=== PATIENT | female | born 1945 | race Caucasian/White ===

== ENCOUNTER 2017-12-26 17:14 | Emergency (ER) | payer MEDICARE ==
--- NOTE | 2017-12-26 17:49 | ED.PDOC ---
History of Present Illness - General Chief Complaint: Headache Time Seen by Provider: 12/26/17 17:35 Source: patient Exam Limitations: no limitations - History of Present Illness Initial Comments: Patient presents with a headache for one week. She says that she has never had one this bad before. It is frontal and occipital. Intermittent. Associated with N/V. Aching in nature. Denies previous episodes. She says she has never had a CVA or AMI. She has Factor V Leiden deficiency and has a history of DVTs. No vision changes. Denies numbness, tingling, or weakness in the extremities. No other complaints. Timing/Duration: 1 week Severity: moderate Improving Factors: nothing Worsening Factors: nothing Associated Symptoms: other - nausea Allergies/Adverse Reactions: Allergies Metronidazole [From Flagyl] Allergy (Verified 12/26/17 17:21) Sulfa Antibiotics Allergy (Verified 12/26/17 17:21) Home Medications: Ambulatory Orders Cefdinir [Omnicef] 300 mg PO BID #4 cap 12/26/17 Promethazine Tab [Phenergan Tablet] 25 mg PO Q6HRS PRN #5 tab 12/26/17 Sumatriptan Succinate [Imitrex] 25 mg PO ONCE PRN #3 tab 12/26/17 Review of Systems - Review of Systems Constitutional: States: no symptoms reported EENTM: States: no symptoms reported Respiratory: States: no symptoms reported Cardiology: States: no symptoms reported Gastrointestinal/Abdominal: States: see HPI Genitourinary: States: no symptoms reported Musculoskeletal: States: no symptoms reported Skin: States: no symptoms reported Neurological: States: see HPI Endocrine: States: no symptoms reported Hematologic/Lymphatic: States: no symptoms reported Past Medical History (General) - Patient Medical History Hx Seizures: No Hx Stroke: No Hx Dementia: No Hx Asthma: No Hx of COPD: No Hx Cardiac Disorders: No Hx Congestive Heart Failure: No Hx Pacemaker: No Hx Hypertension: Yes Hx Thyroid Disease: No Hx Diabetes: Yes Hx Gastroesophageal Reflux: Yes Hx Renal Disease: No Hx Cancer: Yes - colon Hx of HIV: No Hx Hepatitis C: No Hx MRSA: No - Vaccination History Hx Influenza Vaccination: Yes - 2018 Hx Pneumococcal Vaccination: Yes Immunizations Up to Date: Yes - Social History Hx Tobacco Use: No Hx Chewing Tobacco Use: No Hx Alcohol Use: No Hx Substance Use: No Hx Substance Use Treatment: No Hx Depression: No Feels Threatened In Home Enviroment: No Feels Threatened In a Relationship: No Hx Physical Abuse: No Hx Emotional Abuse: No Hx Suspected Abuse: No - Female History Patient is a Female of Child Bearing Age (10 -59 yrs old): No Patient : No Family Medical History - Family History Mother Family History: Unknown Physical Exam - Physical Exam General Appearance: Obvious distress - moderate Eye Exam: bilateral normal Ears, Nose, Throat: hearing grossly normal, normal ENT inspection, normal pharynx Neck: non-tender, full range of motion, supple Respiratory: chest non-tender, lungs clear, normal breath sounds Cardiovascular/Chest: normal peripheral pulses, regular rate, rhythm, no edema Gastrointestinal/Abdominal: normal bowel sounds, non tender, soft Back Exam: normal inspection, no CVA tenderness, no vertebral tenderness Extremity: normal range of motion, non-tender, normal inspection 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 She isn't sure exactly what the disorder is. Therefore, morphine 4 mg IV x one and phenergan 25 mg IV x one was chosen to break this painful headache. 12/26/17 19:42 CT head negative before treatment started. Laboratory Tests 12/26/17 12/26/17 12/26/17 17:44 17:50 17:50 WBC 7.1 RBC 3.71 L Hgb 11.6 L Hct 35.5 L MCV 95.7 MCH 31.2 H MCHC 32.8 L RDW 13.6 Plt Count 249 MPV 8.6 Absolute Neuts (auto) 5.40 Absolute Lymphs (auto) 1.10 Absolute Monos (auto) 0.50 Absolute Eos (auto) 0.00 Absolute Basos (auto) 0.10 Neutrophils % 76.4 Lymphocytes % 15.9 L Monocytes % 6.4 Eosinophils % 0.5 L Basophils % 0.8 PT INR PTT (SP) Sodium 142 Potassium 3.7 Chloride 108 Carbon Dioxide 26 Anion Gap 11.7 L BUN 15 Creatinine 0.94 BUN/Creatinine Ratio 16.0 Random Glucose 165 H Serum Osmolality 287.6 Calcium 8.5 Total Bilirubin 0.7 AST 22 ALT 20 Alkaline Phosphatase 75 Serum Total Protein 6.3 L Albumin 3.6 Globulin 2.7 Albumin/Globulin Ratio 1.3 TSH Thyroxine (T4) Urine Color Urine Appearance Urine pH Ur Specific [place] Urine Protein Urine Glucose (UA) Urine Ketones Urine Blood Urine Nitrite Urine Bilirubin Urine Urobilinogen Ur Leukocyte Esterase Urine RBC Urine WBC Ur Epithelial Cells Urine Bacteria Urine Opiates Screen Negative Urine Barbiturates Negative Ur Phencyclidine Scrn Negative U Amphetamin/Meth Scrn Negative U Benzodiazepines Scrn Negative U Cocaine Metab Screen Negative U Cannabinoids Screen Negative 12/26/17 12/26/17 12/26/17 17:50 17:50 18:40 WBC RBC Hgb Hct MCV MCH MCHC RDW Plt Count MPV Absolute Neuts (auto) Absolute Lymphs (auto) Absolute Monos (auto) Absolute Eos (auto) Absolute Basos (auto) Neutrophils % Lymphocytes % Monocytes % Eosinophils % Basophils % PT 11.0 H INR 1.10 PTT (SP) 24.6 Sodium Potassium Chloride Carbon Dioxide Anion Gap BUN Creatinine BUN/Creatinine Ratio Random Glucose Serum Osmolality Calcium Total Bilirubin AST ALT Alkaline Phosphatase Serum Total Protein Albumin Globulin Albumin/Globulin Ratio TSH 1.90 Thyroxine (T4) 8.07 Urine Color Yellow Urine Appearance Sl cloudy Urine pH 6.0 Ur Specific [place] 1.025 Urine Protein 30 Urine Glucose (UA) Negative Urine Ketones 15 H Urine Blood Trace-lysed H Urine Nitrite Negative Urine Bilirubin Negative Urine Urobilinogen 0.2 Ur Leukocyte Esterase Moderate H Urine RBC 1-3 Urine WBC 5-10 H Ur Epithelial Cells 5-10 Urine Bacteria 2+ H Urine Opiates Screen Urine Barbiturates Ur Phencyclidine Scrn U Amphetamin/Meth Scrn U Benzodiazepines Scrn U Cocaine Metab Screen U Cannabinoids Screen No laboratory explanation for the patient's symptoms. The headache resolved with the morphine and phenergan. Patient had a mild UTI which she is prone to. She was given Rocephin 1 gram IV in the E.D. and an rx for two days of Omnicef. She was also given RX for Phenergan and Imitrex. Care instructions given. E.R. warnings given. Questions were elicited and answered. Patient voiced understanding and agreement with the plan. - EKG/XRAY/CT CT Ordered: No CT Interpretation Call Back: No Departure - Departure Clinical Impression: Headache, UTI (urinary tract infection) Disposition: Discharge to Home or Self Care Condition: Good Departure Forms: ED Discharge - Pt. Copy, Patient Portal Self Enrollment Instructions: DI for Headache Diet: other - as per your primary care doctor Activity: increase activity as tolerated Prescriptions: Promethazine Tab [Phenergan Tablet] 25 mg PO Q6HRS PRN #5 tab PRN Reason: Nausea/Vomiting Cefdinir [Omnicef] 300 mg PO BID #4 cap Sumatriptan Succinate [Imitrex] 25 mg PO ONCE PRN #3 tab PRN Reason: Headache/Migraine Pain Home Medications: Ambulatory Orders Cefdinir [Omnicef] 300 mg PO BID #4 cap 12/26/17 Promethazine Tab [Phenergan Tablet] 25 mg PO Q6HRS PRN #5 tab 12/26/17 Sumatriptan Succinate [Imitrex] 25 mg PO ONCE PRN #3 tab 12/26/17 Additional Instructions: Take medications as prescribed. If headache returns and the medications do not work, return to the E.R. Return to the E.R. for worsening or new symptoms. Return for numbness or weakness in the extremities. See your regular doctor this week for possible future prophylactic treatment.
--- NOTE | 2017-12-26 18:21 | CT ---
EXAM: Head CLINICAL INDICATION: 72-year-old female with worst headache of life with nausea and vomiting. COMPARISON: None. TECHNIQUE: CT brain without contrast. This exam was performed according to our departmental dose optimization program which includes use of automated exposure control, adjustment of the mA and/or kV according to patient size and/or use of iterative reconstruction technique. FINDINGS: The ventricles, sulci, and cisterns are within normal limits. The mercado-white matter differentiation is preserved. There is no mass effect, midline shift, intra- or extra-axial fluid collection/acute hemorrhage. The osseous structures are unremarkable. The paranasal sinuses and mastoid air cells are clear. IMPRESSION: No acute intracranial abnormalities. Electronically signed by: Andreia Keith MD 12/26/2017 6:19 PM CDT
[2017-12-26] MEDS ORDERED: PROMETHAZINE HCL INJ 25 MG in SODIUM CHLORIDE 0.9% 50ML 50 ML IVPB ONE (18:28)
[2017-12-26] MEDS ORDERED: KETOROLAC TROMETHAMINE INJ 30 MG/ML VIAL IV ONE (18:28)
[2017-12-26] MEDS ORDERED: MORPHINE SULFATE INJ 10 MG/ML VIAL IV ONE (18:38)
[2017-12-26] MEDS ORDERED: PROMETHAZINE HCL INJ 25 MG/ML VIAL ONE (18:41)
[2017-12-26] MEDS ORDERED: SODIUM CHLORIDE 0.9% 50ML 50 ML ONE (18:41)
[2017-12-26] MEDS ORDERED: cefTRIAXone SODIUM 1 GM in SODIUM CHL 0.9% 50ML MIN-BAG+ 50 ML IVPB ONE (19:14)
[2017-12-26] MEDS ORDERED: cefTRIAXone SODIUM 1 GM VIAL ONE (19:22)
[2017-12-26] MEDS ORDERED: SODIUM CHL 0.9% 50ML MIN-BAG+ 50 ML IVPB ONE (19:22)
[2017-12-26 20:04] VITALS: BP 182/83
[2017-12-26 20:13] VITALS: TEMP 98.4; O2SAT 97
== END 2017-12-26 20:17 | disposition home or self-care (01) ==
LOC: ER 17:14
DX: R51 Headache (principal); N39.0 Urinary tract infection, site not specified; I10 Essential (primary) hypertension; E11.9 Type 2 diabetes mellitus without complications; K21.9 Gastro-esophageal reflux disease without esophagitis; Z85.038 Personal history of other malignant neoplasm of large intestine; Z79.899 Other long term (current) drug therapy; Z88.2 Allergy status to sulfonamides; Z88.8 Allergy status to other drugs, medicaments and biological substances

== ENCOUNTER 2018-03-12 13:12 | Emergency (ER) | payer MEDICARE ==
--- NOTE | 2018-03-12 13:55 | ED.PDOC ---
History of Present Illness - General Chief Complaint: Abdominal Pain Stated Complaint: Abdominal discomfort Time Seen by Provider: 03/12/18 13:51 Source: patient Exam Limitations: no limitations - History of Present Illness Initial Comments: Kyung Dunbar 72 y/o female from [place] came to ER with lower abdominal discomfort yesterday followed by gross hematuria then subsided but this am had another episode of bloody urine decided to come to ER.Denies fever ,N/V/D,good bm.Stated takes Xarelto for the las years for DVT.Recently hospitalized for spinal meningitis in [place], [place].3 months ago Timing/Duration: yesterday Quality: moderate Onset Location: suprapubic Radiation: none Activites at Onset: none Prior abdominal problems: none Sexual intercourse history: not active Improving Factors: nothing Worsening Factors: nothing Associated Symptoms: other - see hpi Allergies/Adverse Reactions: Allergies Metronidazole [From Flagyl] Allergy (Verified 03/12/18 13:32) Rash Sulfa Antibiotics Allergy (Verified 03/12/18 13:32) Rash Home Medications: Ambulatory Orders Acetamin W/Cod #3 Tab [Tylenol w/CODEINE #3] 1 ea PO Q4HR PRN #20 tab 03/12/18 Clonidine HCl 0.2 mg PO BID 03/12/18 Gerd Medication 1 each PO DAILY 03/12/18 Rivaroxaban [Xarelto] 20 mg PO DAILY 03/12/18 Review of Systems - Review of Systems Gastrointestinal/Abdominal: States: see HPI Genitourinary: States: see HPI, hematuria All other Systems: Reviewed and Negative, No Change from Baseline Past Medical History (General) - Patient Medical History Hx Seizures: No Hx Stroke: No Hx Dementia: No Hx Asthma: No Hx of COPD: No Hx Cardiac Disorders: No Hx Congestive Heart Failure: No Hx Pacemaker: No Hx Hypertension: Yes Hx Thyroid Disease: No - Goiter Hx Diabetes: Yes Hx Gastroesophageal Reflux: Yes Hx Renal Disease: No 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 Hx of HIV: No Hx Hepatitis C: No Hx MRSA: No Surgical History: colectomy, other - hysterectomy - Vaccination History Hx Influenza Vaccination: Yes - 2018 Hx Pneumococcal Vaccination: Yes - Social History Hx Tobacco Use: No Hx Chewing Tobacco Use: No Hx Alcohol Use: No Hx Substance Use: No Hx Substance Use Treatment: No Hx Depression: No Hx Physical Abuse: No Hx Emotional Abuse: No Hx Suspected Abuse: No - Activities of Daily Living Patient Lives Alone: No Grooming Ability: Independent Eating (Feeding) Ability: Independent Toileting Ability: Independent - Female History Patient : No Family Medical History - Family History Mother Family History: Unknown Living Status: Still Living Hx Family Hypertension: Yes Hx Family;Other: ALS-dad Physical Exam - Physical Exam General Appearance: Alert, Comfortable, No apparent distress Eyes, Ears, Nose, Throat Exam: normal ENT inspection Neck: non-tender, full range of motion, supple Cardiovascular/Respiratory: regular rate, rhythm, normal peripheral pulses, normal breath sounds, no respiratory distress Gastrointestinal/Abdominal: normal bowel sounds, non tender, soft Back Exam: no CVA tenderness, no vertebral tenderness Extremity: no pedal edema, no calf tenderness Neurologic: alert, oriented x 3 Skin Exam: normal color, warm/dry Progress - Progress Progress: 03/12/18 16:13 Vital Signs - 8 hr 03/12/18 03/12/18 03/12/18 13:21 14:20 15:21 Temperature 99.8 F H 99.3 F 97.2 F L Pulse Rate [ 71 69 63 Left Radial] Respiratory 20 20 16 Rate Blood Pressure 178/85 161/98 171/78 [Left Arm] O2 Sat by Pulse 99 98 97 Oximetry - Results/Orders Results/Orders: Laboratory Results - last 24 hr 03/12/18 03/12/18 03/12/18 14:13 14:13 14:13 WBC 7.8 RBC 3.87 L Hgb 12.4 Hct 37.3 MCV 96.4 MCH 32.0 H MCHC 33.2 RDW 15.0 H Plt Count 178 MPV 8.7 Absolute Neuts (auto) 6.10 Absolute Lymphs (auto) 1.10 Absolute Monos (auto) 0.50 Absolute Eos (auto) 0.00 Absolute Basos (auto) 0.00 Neutrophils % 78.1 H Lymphocytes % 13.9 L Monocytes % 6.8 Eosinophils % 0.6 L Basophils % 0.6 PT 13.5 H INR 1.35 H PTT (SP) 23.7 Sodium 141 Potassium 4.0 Chloride 110 Carbon Dioxide 25 Anion Gap 10.0 L BUN 25 H Creatinine 1.10 BUN/Creatinine Ratio 22.7 H Random Glucose 180 H Serum Osmolality 290.2 Calcium 9.2 Urine Color Urine Appearance Urine pH Ur Specific [place] Urine Protein Urine Glucose (UA) Urine Ketones Urine Blood Urine Nitrite Urine Bilirubin Urine Urobilinogen Ur Leukocyte Esterase Urine RBC Urine WBC Ur Epithelial Cells Urine Bacteria 03/12/18 14:39 WBC RBC Hgb Hct MCV MCH MCHC RDW Plt Count MPV Absolute Neuts (auto) Absolute Lymphs (auto) Absolute Monos (auto) Absolute Eos (auto) Absolute Basos (auto) Neutrophils % Lymphocytes % Monocytes % Eosinophils % Basophils % PT INR PTT (SP) Sodium Potassium Chloride Carbon Dioxide Anion Gap BUN Creatinine BUN/Creatinine Ratio Random Glucose Serum Osmolality Calcium Urine Color Red H Urine Appearance Cloudy Urine pH 5.5 Ur Specific [place] >= 1.030 Urine Protein >=300 H Urine Glucose (UA) Negative Urine Ketones Negative Urine Blood Large H Urine Nitrite Negative Urine Bilirubin Small H Urine Urobilinogen 0.2 Ur Leukocyte Esterase Negative Urine RBC Tntc H Urine WBC 3-5 H Ur Epithelial Cells 3-5 Urine Bacteria 4+ H Departure - Departure Clinical Impression: Gross hematuria, Ureteral calculus, right Time of Disposition: 16:15 Disposition: Discharge to Home or Self Care Condition: Fair Departure Forms: ED Discharge - Pt. Copy, Patient Portal Self Enrollment Instructions: Kidney Stones in Adults, Kidney Stones (DC) Prescriptions: Acetamin W/Cod #3 Tab [Tylenol w/CODEINE #3] 1 ea PO Q4HR PRN #20 tab PRN Reason: Pain Home Medications: Ambulatory Orders Acetamin W/Cod #3 Tab [Tylenol w/CODEINE #3] 1 ea PO Q4HR PRN #20 tab 03/12/18 Clonidine HCl 0.2 mg PO BID 03/12/18 Gerd Medication 1 each PO DAILY 03/12/18 Rivaroxaban [Xarelto] 20 mg PO DAILY 03/12/18 Additional Instructions: Increase oral fluid in take;continue with all home medications;Return to ER as needed
--- NOTE | 2018-03-12 16:06 | CT ---
PROCEDURE: Abdoment/Pelvis w/o Contrast HISTORY: gross hematuria Indication: Same as above Comparison: None Technique: CT of the abdomen and pelvis was done without intravenous contrast. Images were obtained from the lung base to the level of the pubic symphysis in axial plane, followed by orthogonal sagittal and coronal reconstruction. Oral contrast was not given for the study. This exam was performed according to our departmental dose-optimization program, which includes automated exposure control, adjustment of the mA and/or KV according to the patient's size and/or use of iterative reconstruction technique. FINDINGS: Images through the lung bases do not show any focal infiltrates or pleural effusions. There is presence of a small hiatal hernia The liver, gallbladder, pancreas, spleen and the bilateral adrenal glands appear unremarkable, given the limitation of lack of intravenous contrast. There is presence of a small fat-containing anterior midline ventral hernia defect in the supraumbilical region and a second periumbilical ventral hernia defect containing intraperitoneal fat and nonobstructed loop of small bowel There is right-sided hydroureteronephrosis to the level of the 8 mm calculus seen in the proximal right ureter at the ureteropelvic junction. There is presence of a a few punctate nonobstructive calculi in the lower pole of the right kidney. There is no left-sided hydroureteronephrosis or nephrolithiasis The urinary bladder is unremarkable, without any evidence of wall thickening, calculi or filling defects. The remainder of the small bowel appears unremarkable, without any evidence of small bowel obstruction or bowel wall thickening. There is suggestion of partial colectomy. There is prior surgery in the region of the sigmoid colon with ileocolonic anastomosis seen at this level There is no pathological lymphadenopathy in the retroperitoneum or in the pelvic region. There is no evidence of free fluid or free air in the abdomen or the pelvic region. There is no clinically significant abdominal aortic aneurysm.and a second periumbilical ventral hernia defect containing intraperitoneal fat and nonobstructed loop of small bowel The visualized lumbar spine shows degenerative change at L5/S1 level. The paravertebral soft tissues are unremarkable. The remainder of the pelvic structures are unremarkable. IMPRESSION: There is right-sided hydroureteronephrosis to the level of the 8 mm calculus seen in the proximal right ureter at the ureteropelvic junction. There is presence of a a few punctate nonobstructive calculi in the lower pole of the right kidney. There is presence of a small fat-containing anterior midline ventral hernia defect in the supraumbilical region and a second periumbilical ventral hernia defect containing intraperitoneal fat and nonobstructed loop of small bowel Electronically signed by: Jarad Otero MD 03/12/2018 4:04 PM [employer] Workstation: [id number]
[2018-03-12 16:26] VITALS: BP 159/73; TEMP 97; O2SAT 96
== END 2018-03-12 16:25 | disposition home or self-care (01) ==
LOC: ER 13:12
DX: N13.2 Hydronephrosis with renal and ureteral calculous obstruction (principal); R31.0 Gross hematuria; I10 Essential (primary) hypertension; E11.9 Type 2 diabetes mellitus without complications; K21.9 Gastro-esophageal reflux disease without esophagitis; Z85.038 Personal history of other malignant neoplasm of large intestine; Z88.8 Allergy status to other drugs, medicaments and biological substances; Z88.2 Allergy status to sulfonamides

== ENCOUNTER 2018-03-13 15:46 | Emergency (ER) | payer MEDICARE ==
[2018-03-13] MEDS ORDERED: MORPHINE SULFATE INJ 10 MG/ML VIAL IV ONE (16:17)
[2018-03-13] MEDS ORDERED: ONDANSETRON INJ 4 MG/2 ML VIAL IV ONE (16:18)
--- NOTE | 2018-03-13 16:29 | ED.PDOC ---
History of Present Illness - General Chief Complaint: Problem Stated Complaint: right flank pain Time Seen by Provider: 03/13/18 16:04 - History of Present Illness Initial Comments: THIS PATIENT WAS SEEN YESTERDAY WITH RIGHT SIDED FLANK PAIN. SHE HAS AN 8 MM STONE ON THE RIGHT PROXIMAL URETER. SHE RATES THE PAIN AT 8/10. SHE WAS GIVEN TYLENO 3 AND IS NOT TOUCHING THE PAIN . Timing/Duration: other - TWO DAYS Worsening Factors: nothing Associated Symptoms: nausea/vomiting Allergies/Adverse Reactions: Allergies Metronidazole [From Flagyl] Allergy (Verified 03/12/18 13:32) Rash Sulfa Antibiotics Allergy (Verified 03/12/18 13:32) Rash Home Medications: Ambulatory Orders Acetamin W/Cod #3 Tab [Tylenol w/CODEINE #3] 1 ea PO Q4HR PRN #20 tab 03/12/18 Clonidine HCl 0.2 mg PO BID 03/12/18 Rivaroxaban [Xarelto] 20 mg PO DAILY 03/12/18 DULoxetine HCL [Cymbalta] 60 mg PO DAILY 03/13/18 Ketorolac Tromethamine 10 mg PO Q8HRS #15 tab 03/13/18 Nitrofurantoin Monohydrate Mac [Macrobid] 100 mg PO BID #20 capsule 03/13/18 Tramadol HCl 50 mg PO Q6HRS #20 tab 03/13/18 Review of Systems - Review of Systems Constitutional: States: malaise EENTM: States: no symptoms reported Respiratory: States: no symptoms reported Cardiology: States: no symptoms reported Gastrointestinal/Abdominal: States: abdominal pain, nausea, vomiting Genitourinary: States: hematuria, other - RIGHT FLANK PAIN Musculoskeletal: States: no symptoms reported Skin: States: no symptoms reported Neurological: States: no symptoms reported Endocrine: States: no symptoms reported Past Medical History (General) - Patient Medical History Hx Seizures: No Hx Stroke: No Hx Dementia: No Hx Asthma: No Hx of COPD: No Hx Cardiac Disorders: No Hx Congestive Heart Failure: No Hx Pacemaker: No Hx Hypertension: Yes Hx Thyroid Disease: No - Goiter Hx Diabetes: Yes Hx Gastroesophageal Reflux: Yes Hx Renal Disease: No 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 Hx of HIV: No Hx Hepatitis C: No Hx MRSA: No - Vaccination History Hx Influenza Vaccination: Yes - 2018 Hx Pneumococcal Vaccination: Yes - Social History Hx Tobacco Use: No Hx Chewing Tobacco Use: No Hx Alcohol Use: No Hx Substance Use: No Hx Substance Use Treatment: No Hx Depression: No Hx Physical Abuse: No Hx Emotional Abuse: No Hx Suspected Abuse: No - Female History Patient : No Family Medical History - Family History Mother Family History: Unknown Living Status: Still Living Hx Family Hypertension: Yes Hx Family;Other: ALS-dad Physical Exam - Physical Exam General Appearance: Alert, Ill Appearing, Well Developed, Well Groomed, Well Hydrated, Well Nourished Eye Exam: bilateral normal Ears, Nose, Throat: hearing grossly normal Respiratory: chest non-tender, lungs clear, normal breath sounds Cardiovascular/Chest: normal peripheral pulses, regular rate, rhythm, no edema, no gallop, no JVD, no murmur Peripheral Pulses: radial,right: 2+, radial,left: 2+ Gastrointestinal/Abdominal: normal bowel sounds, soft, no organomegaly, no pulsatile mass, abnormal bowel sounds Neurologic: no motor/sensory deficits, alert, normal mood/affect Progress - Progress Progress: 03/13/18 18:11 URINE IS + NITRATE WILL TREAT. OF NOW THERE IS NO PAIN. SHE WOULD LIKE OUTPATIENT TREATMENT AND A REFERRAL TO [facility]. 03/13/18 18:15 - Results/Orders Results/Orders: 03/13/18 16:43 URINE CULTURE W/COLONY COUNT Stat Laboratory Results - last 24 hr 03/13/18 03/13/18 16:39 16:43 WBC 10.4 RBC 4.27 Hgb 13.6 Hct 41.0 MCV 96.2 MCH 31.8 H MCHC 33.0 RDW 14.9 H Plt Count 182 MPV 8.8 Absolute Neuts (auto) 8.40 H Absolute Lymphs (auto) 1.00 Absolute Monos (auto) 0.80 Absolute Eos (auto) 0.00 Absolute Basos (auto) 0.10 Neutrophils % 81.4 H Lymphocytes % 9.4 L Monocytes % 7.7 Eosinophils % 0.4 L Basophils % 1.1 Urine Color Yellow Urine Appearance Cloudy Urine pH 5.5 Ur Specific [place] 1.020 Urine Protein Negative Urine Glucose (UA) Negative Urine Ketones Negative Urine Blood Trace-lysed H Urine Nitrite Positive H Urine Bilirubin Negative Urine Urobilinogen 0.2 Ur Leukocyte Esterase Negative Urine RBC 0-1 Urine WBC 1-3 Ur Epithelial Cells 5-10 Urine Bacteria 3+ H Departure - Departure Clinical Impression: Ureterolithiasis Time of Disposition: 18:16 Disposition: Discharge to Home or Self Care Condition: Good Departure Forms: ED Discharge - Pt. Copy, Patient Portal Self Enrollment Instructions: DI for Kidney Stones, DI for Kidney Infection Diet: resume usual diet Activity: increase activity as tolerated Prescriptions: Tramadol HCl 50 mg PO Q6HRS #20 tab Ketorolac Tromethamine 10 mg PO Q8HRS #15 tab Nitrofurantoin Monohydrate Mac [Macrobid] 100 mg PO BID #20 capsule Home Medications: Ambulatory Orders Acetamin W/Cod #3 Tab [Tylenol w/CODEINE #3] 1 ea PO Q4HR PRN #20 tab 03/12/18 Clonidine HCl 0.2 mg PO BID 03/12/18 Rivaroxaban [Xarelto] 20 mg PO DAILY 03/12/18 DULoxetine HCL [Cymbalta] 60 mg PO DAILY 03/13/18 Ketorolac Tromethamine 10 mg PO Q8HRS #15 tab 03/13/18 Nitrofurantoin Monohydrate Mac [Macrobid] 100 mg PO BID #20 capsule 03/13/18 Tramadol HCl 50 mg PO Q6HRS #20 tab 03/13/18
[2018-03-13 17:14] VITALS: O2SAT 95
[2018-03-13] MEDS ORDERED: KETOROLAC TROMETHAMINE INJ 30 MG/ML VIAL IV ONE (17:25)
[2018-03-13] MEDS ORDERED: NITROFURANTOIN MONO (ER DISP) 100 MG CAP PO ONE (18:38)
[2018-03-13] MEDS ORDERED: traMADol HCL 50 MG (ER DISP) # 6 TABS PO ONE (18:39)
[2018-03-13 18:42] VITALS: BP 164/63
== END 2018-03-13 18:49 | disposition home or self-care (01) ==
LOC: ER 15:46
DX: N20.1 Calculus of ureter (principal); K21.9 Gastro-esophageal reflux disease without esophagitis; I10 Essential (primary) hypertension; E11.9 Type 2 diabetes mellitus without complications; Z85.038 Personal history of other malignant neoplasm of large intestine; Z79.899 Other long term (current) drug therapy; Z88.8 Allergy status to other drugs, medicaments and biological substances; Z88.2 Allergy status to sulfonamides
CPT/HCPCS: 81001; 85025; 87086; J1885; J2270; J2405